=== PATIENT | male | born 1965 | race Hispanic/Latino ===

== ENCOUNTER 2020-03-28 09:43 | Inpatient (IN) | payer BC ==
--- NOTE | 2020-03-22 09:13 | RAD REPORT ---
EXAM DESCRIPTION: RAD - Chest Pa And Lat (2 Views) - 03/22/2020 9:06 am CLINICAL HISTORY: Preop Chest pain. COMPARISON: No comparisons FINDINGS: The lungs are clear. The heart is normal in size. No displaced fractures. IMPRESSION: No acute or concerning finding suspected.
[2020-03-22 09:47] LABS: Absolute Lymphocytes (CBC) 2.1 K/uL (0.7-4.9); Basophils % 0.3 % (0-1.3); Hematocrit 46.4 % (39.6-49.0); Lymphocytes % 30.2 % (15.3-44.8); MPV 7.9 fL (7.6-11.3); RBC Red Blood Cell Count 5.53 M/uL (4.33-5.43)
[2020-03-22 09:51] LABS: Protime INR 0.91
[2020-03-22 09:57] LABS: Potassium 3.9 mmol/L (3.5-5.1)
--- OUTSIDE RECORDS SUMMARY | 2020-03-28 10:04 | XMS REPORT | Continuity of Care Document ---
:1965 Author Organization [facility] t Address [address] [place] [address] Care Team Providers Name Role Phone Unavailable Unavailable Unavailable Problems This patient has no known problems. Allergies, Adverse Reactions, Alerts This patient has no known allergies or adverse reactions. Medications Ordered Filled Start Stop Current Ordering Indication Dosage Frequency Signature Comments Components Source Medication Medication Date Date Medication? Clinician (SIG) Name Name Tylenol # 3 Tylenol # 3 2019- Yes Robert one tab [facility] Procedures This patient has no known procedures. Encounters Start End Encounter Admission Attending Care Care Encounter Source Date/Time Date/Time Type Type Clinicians Facility Department ID 2020-03-26 2020-03-26 Outpatient [facility] [id number] [facility] 2020-03-20 2020-03-20 Outpatient [facility] [id number] [facility] 2020-02-08 2020-02-08 Outpatient [facility] [id number] [facility] 2020-02-06 2020-02-06 Outpatient [facility] [id number] [facility] 2020-01-20 2020-01-20 Outpatient Arelis Vidal [id number] [facility] 2020-01-10 2020-01-10 Outpatient Arelis Vidal [id number] [facility] 15[facility]13[facility]00 15[facility]13[facility]00 [facility] 2019-12-26 2019-12-26 Outpatient Arelis Vidal [id number] 14:[facility]00 14[facility]00[facility]00 [facility] Results This patient has no known results.
--- OUTSIDE RECORDS SUMMARY | 2020-03-28 10:05 | XMS REPORT ---
:1965 Author Organization [employer] Care Team Providers Name Role Phone Robert Collier Provider Role Unavailable Allergies, Adverse Reactions, Alerts Substance Reaction Event Type N.K.D.A. Info Not Available Non Drug Allergy Problems Problem Type Condition Code Onset Dates Condition Statu s Problem Primary osteoarthritis of right M17.11 Active knee Problem Primary osteoarthritis of left knee M17.12 Active Assessment Primary osteoarthritis of right M17.11 Active knee Assessment Primary osteoarthritis of left knee M17.12 Active Assessment Pain in joint of left knee M25.562 A ctive Assessment Pain in joint of right knee M25.561 Active Medications Medication Code Code Instructions Start End Status Dosage System Date Date Ciprofloxacin HCl [facility] [address]-66 Active not defined Tramadol HCl [facility] 37911511852 50 MG Orally Dec 25, Active 1 tablet Q6H PRN PAIN 2019 Omeprazole [facility] [address]-13 Active not defined Azulfidine [facility] [address]-79 Active not defined Metronidazole [facility] [address]-24 Active not defined Testosterone [facility] [address]-80 Active not Cypionate defined Suprep Bowel Prep [facility] [address]-63 Active not Kit defined Hydrocortisone [facility] [address]-34 Active not (Perianal) defined Results No Known Results Summary Purpose eClinicalWorks Submission
--- OUTSIDE RECORDS SUMMARY | 2020-03-28 10:05 | XMS REPORT ---
:1965 Author Organization [employer] Care Team Providers Name Role Phone Robert Collier Provider Role Unavailable Allergies No Known Allergies Problems Problem Type Condition Code Onset Dates Condition Statu s Problem Primary osteoarthritis of right knee M17.11 Active Problem Primary osteoarthritis of left knee M17.12 Active Medications No Known Medications Results No Known Results Summary Purpose eClinicalWorks Submission
--- OUTSIDE RECORDS SUMMARY | 2020-03-28 10:05 | XMS REPORT ---
:1965 Author Organization [facility] Address [address] [place] [address] Care Team Providers Name Role Phone Robert Collier Unavailable [phone] PROBLEMS Type Condition ICD9-CM [id number] Onset Condition SNOMED Code Notes Code Code Dates Status Problem Primary M17.11 Active [id number] osteoarthritis of right knee Problem Primary M17.12 Active [id number] osteoarthritis of left knee ALLERGIES No Known Allergies ENCOUNTERS from 1965 to 2020-02-08 Encounter Location Date Provider Diagnosis [facility] [address] Jan, [place] [address] IMMUNIZATIONS No Information SOCIAL HISTORY Tobacco Use: Social History Observation Description Date Details (start date - stop date) Never Smoker Sex Assigned At : Social History Observation Description Sex Assigned At Unknown Alcohol Screen Question Answer Notes Did you have a drink containing alcohol in Yes the past year? Points 4 Interpretation Positive How often did you have 6 or more drinks on Less than monthly (1 point) one occasion in the past year? How often did you have a drink containing Two to three times per week (3 alcohol in the past year? points) Tobacco Use/Smoking Question Answer Notes Are you a never smoker Additional Findings: Tobacco Non-User Current non-smoker REASON FOR REFERRAL No Information VITAL SIGNS No information MEDICATIONS Medication SIG (Take, Route, Start Date End Date Status Frequency, Duration) Tramadol HCl 50 MG 1 tablet Orally Q6H PRN Dec, Active PAIN Testosterone Cypionate Not-T aking Azulfidine Active Hydrocortisone (Perianal) No t-Taking Omeprazole Not-Taking Ciprofloxacin HCl Not-Taking Suprep Bowel Prep Kit Not-Ta russell Metronidazole Not-Taking Tylenol # 3 300/30mg one tab PO 6 hrs prn Jan, Feb, Active pain for 30 days PROCEDURES No Information RESULTS No Results REASON FOR VISIT MRI Auth MEDICAL (GENERAL) HISTORY Type Description Date Medical History htn Medical History gerd Surgical History right knee Surgical History appendectomy Goals Section No Information Health Concerns No Information MEDICAL EQUIPMENT No Information MENTAL STATUS No Information FUNCTIONAL STATUS No Information ASSESSMENTS No Information PLAN OF TREATMENT Medication Medication Name Sig Start Date Stop Date Tylenol # 3 300/30mg one tab PO 6 hrs prn pain for 30 days 2019Feb, Tramadol HCl 50 MG 1 tablet Orally Q6H PRN PAIN Dec, Next Appt Details Provider Name:Robert Collier, 2020-04-19 0 1:00:00 PM, [address] [facility] , [address], [place], [address], Insurance Providers Payer Name Payer Payer Insured Name Patient Coverage Covera ge End Address Phone Relationship to Start Date Ferdinand e Insured [employer] [phone] CLAYTON DONOVAN and Blue [id number] [address] [place] [phone]
--- OUTSIDE RECORDS SUMMARY | 2020-03-28 10:05 | XMS REPORT ---
:1965 Author Organization [facility] Address [address], [facility] 1 [place] [address] Care Team Providers Name Role Phone Robert Collier Unavailable [phone] PROBLEMS Type Condition ICD9-CM [id number] Onset Condition SNOMED Code Notes Code Code Dates Status Problem Primary M17.11 Active 418832706142143 osteoarthritis of right knee Problem Primary M17.12 Active [id number] osteoarthritis of left knee ALLERGIES No Known Allergies ENCOUNTERS from 1965 to 2020-03-21 Encounter Location Date Provider Diagnosis [facility] [address] Mar, Robert [facility] [address] [place] of right kne e M17.11 ; [place], [place] Pain in joint o f left [address] knee M25.562 ; Pain in joint of right knee M25.561 and Mely lesli osteoarthritis of left knee M17.12 IMMUNIZATIONS No Information SOCIAL HISTORY Tobacco Use: [...] REASON FOR REFERRAL No Information VITAL SIGNS Height 68 in Mar, Weight 210 lbs Mar, Temperature 97.5 degrees Fahrenheit Mar, BMI 31.93 kg/m2 Mar, Blood pressure systolic 123 mm Hg Mar, Blood pressure diastolic 98 mm Hg Mar, MEDICATIONS Medication SIG (Take, Route, Frequency, Start Date End Date Status Duration) Ciprofloxacin HCl Not-Taking Metronidazole Not-Taking Enalapril Maleate Active Sulfasalazine Active Testosterone Cypionate Not-T aking Suprep Bowel Prep Kit Not-Ta russell Omeprazole Active Hydrocortisone (Perianal) No t-Taking PROCEDURES No Information RESULTS No Results REASON FOR VISIT right knee pain/ discuss TKA for 03/28 MEDICAL (GENERAL) HISTORY Type Description Date Medical History htn Medical History gerd Surgical History right knee Surgical History appendectomy Goals Section No Information Health Concerns No Information MEDICAL EQUIPMENT No Information MENTAL STATUS No Information FUNCTIONAL STATUS No Information ASSESSMENTS Encounter Date Diagnosis Notes Mar, Pain in joint of right knee (ICD-10 - M2 5.561) Mar, Pain in joint of left knee (ICD-10 - M25 .562) Mar, Primary osteoarthritis of left knee (ICD -10 - M17.12) Mar, Primary osteoarthritis of right knee (IC D-10 - M17.11) PLAN OF TREATMENT Treatment Notes Assessment Notes Clinical Notes Primary osteoarthritis of right I discussed with the patient at knee length his diagnosis and treatment plan and he expressed understanding. He has failed conservative treatment including weight management, strengthening exercises, NSAIDs use, and corticosteroid injections. His pain interferes with his ADLs. I recommended right total knee arthroplasty. I discussed with the patient risks and benefits associated with the procedure at length as well as postoperative rehabilitation and he expressed understanding. He is scheduled for right TKA next week. He will followup 2 weeks postop for staple removal. Primary osteoarthritis of left knee -proceed with conservati ve treatment at this time including pain medication as needed and home exercise program-begin with surgical treatment of the right knee Next Appt Details 2 weeks postop Reason: Provider Name:Robert Collier, 2020-04-19 0 1:00:00 PM, [address], [address], [place], [address], Insurance Providers Payer Name Payer Payer Insured Name Patient Coverage Covera End Address Phone Relationship to Start Date Ferdinand e Insured [employer] [phone] CLAYTON DONOVAN and Van [id number] [address] [place] [id number]
--- OUTSIDE RECORDS SUMMARY | 2020-03-28 10:05 | XMS REPORT ---
:1965 Author Organization [employer] Care Team Providers Name Role Phone Nando Robert Provider Role Unavailable Allergies No Known Allergies Problems Problem Type Condition Code Onset Dates Condition Statu s Problem Primary osteoarthritis of right knee M17.11 Active Problem Primary osteoarthritis of left knee M17.12 Active Medications Medication Code System Code Instructions Start Date End Date Status Dosage Tylenol # 3 NDC 0 300/30mg PO 6 hrs Jan 11, Feb 10, Active o ne tab prn pain 2019 2019 Results No Known Results Summary Purpose eClinicalWorks Submission
--- OUTSIDE RECORDS SUMMARY | 2020-03-28 10:05 | XMS REPORT ---
:1965 Author Organization [facility] Address [address] [place] [address] Care Team Providers Name Role Phone Robert Collier Unavailable [phone] PROBLEMS Type Condition ICD9-CM [id number] Onset Condition SNOMED Code Notes Code Code Dates Status Problem Primary M17.11 Active [id number] osteoarthritis of right knee Problem Primary M17.12 Active 016554680344813 osteoarthritis of left knee ALLERGIES No Known Allergies ENCOUNTERS from 1965 to 2020-03-26 Encounter Location Date Provider Diagnosis [facility] [address] Mar, [place] [address] IMMUNIZATIONS No Information SOCIAL HISTORY Tobacco Use: [...] No information MEDICATIONS Medication SIG (Take, Route, Notes Start Date End Date Status Frequency, Duration) Omeprazole Not-Taking Metronidazole Not-Taking Suprep Bowel Prep Kit Not -Taking Testosterone Cypionate No t-Taking Tramadol HCl 50 MG 1 tablet Orally Q6H Dec, Active PRN PAIN Xarelto 10 MG 1 tablet Orally Once Mar, Active a day for 11 days Ciprofloxacin HCl Not-Chintan ing Enalapril Maleate Active Hydrocortisone (Perianal) Not-Taking Azulfidine Active Sulfasalazine Active PROCEDURES No Information RESULTS No Results REASON FOR VISIT RX FOR TKA MEDICAL (GENERAL) HISTORY Type Description Date Medical History htn Medical History gerd Surgical History right knee Surgical History appendectomy Goals Section No Information Health Concerns No Information MEDICAL EQUIPMENT No Information MENTAL STATUS No Information FUNCTIONAL STATUS No Information ASSESSMENTS No Information PLAN OF TREATMENT Medication Medication Name Sig Start Date Stop Date Xarelto 10 MG 1 tablet Orally Once a day for 11 days Mar, 2 020 Next Appt Details Provider Name:Robert Collier, 2020-04-12 1 0:00:00 AM, [address], [address], [place], [address], Insurance Providers Payer Name Payer Payer Insured Name Patient Coverage Covera ge End Address Phone Relationship to Start Date Ferdinand e Insured [employer] [phone] CLAYTON DONOVAN and Blue [id number] [address] [place] [phone]
--- OUTSIDE RECORDS SUMMARY | 2020-03-28 10:05 | XMS REPORT ---
:1965 Author Organization [facility] Address [address] , [facility] 1 [place] [address] Care Team Providers Name Role Phone Robert Collier Unavailable [phone] PROBLEMS Type Condition ICD9-CM [id number] Onset Condition SNOMED Code Notes Code Code Dates Status Problem Primary M17.11 Active [id number] osteoarthritis of right knee Problem Primary M17.12 Active 110771952207916 osteoarthritis of left knee ALLERGIES No Known Allergies ENCOUNTERS from 1965 to 2020-02-06 Encounter Location Date Provider Diagnosis [facility] [address] Jan, Robert [facility] [address] [place] of right kne e M17.11 [place] [address] IMMUNIZATIONS No Information SOCIAL HISTORY Tobacco Use: [...] RESULTS No Results REASON FOR VISIT MRI MEDICAL (GENERAL) HISTORY Type Description Date Medical History htn Medical History gerd Surgical History right knee Surgical History appendectomy Goals Section No Information Health Concerns No Information MEDICAL EQUIPMENT No Information MENTAL STATUS No Information FUNCTIONAL STATUS No Information ASSESSMENTS Encounter Date Diagnosis Notes Jan, Primary osteoarthritis of right knee (IC D-10 - M17.11) PLAN OF TREATMENT Medication Medication Name Sig Start Date Stop Date Tylenol # 3 300/30mg one tab PO 6 hrs prn pain for 30 days 2019Feb, Tramadol HCl 50 MG 1 tablet Orally Q6H PRN PAIN Dec, Treatment Notes Test Name Order Date MRI Knee Right Wo Cont 2020-02-06 Next Appt Details Provider Name:Robert Collier 2020-04-19 0 1:00:00 PM, [address] [facility] [address], [address], [place], [address], Insurance Providers Payer Name Payer Payer Insured Name Patient Coverage Covera ge End Address Phone Relationship to Start Date Ferdinand e Insured [employer] [phone] CLAYTON DONOVAN and Blue [id number] [address] [place] [phone]
[2020-03-28] MEDS ORDERED: Ringers Lactate 1,000 ML IV ONE ×2 (10:21→14:56)
[2020-03-28] MEDS ORDERED: BUPIVACAINE 0.25% PF 10 ML VIAL ONE (10:48)
[2020-03-28] MEDS ORDERED: ROCURONIUM 50 MG/5 ML VIAL IV ONE (10:48)
[2020-03-28] MEDS ORDERED: NS 0.9% VIAL 10 ML ONE ×2 (10:49→12:48)
[2020-03-28] MEDS ORDERED: propofoL 200 MG/20 ML VIAL IV ONE (10:49)
[2020-03-28] MEDS ORDERED: FENTANYL CITR 100 MCG/2 ML ONE (10:49)
[2020-03-28] MEDS ORDERED: MIDAZOLAM HCL 2 MG/2 ML INJ ONE (10:49)
[2020-03-28] MEDS ORDERED: dexAMETHasone 10 MG/ML VIAL ONE ×2 (10:49→10:59)
[2020-03-28] MEDS ORDERED: LIDOCAINE 2% MPF 5 ML VIAL ONE (10:49)
[2020-03-28] MEDS ORDERED: CEFAZOLIN/SWI 2gm 2 GM/20 ML SYR ONE (10:55)
[2020-03-28] MEDS ORDERED: ONDANSETRON 4 MG/2 ML VIAL ONE (10:59)
[2020-03-28] MEDS ORDERED: KETAMINE HCL 500 MG/5 ML VIAL ONE (10:59)
[2020-03-28] MEDS ORDERED: KETOROLAC 30 MG/ML INJ ONE (10:59)
[2020-03-28] MEDS ORDERED: TRANEXAMIC ACID 1,000 MG in NA CHLORIDE 0.9% 50 ML IV ONE (11:00)
[2020-03-28] MEDS ORDERED: HYDROMORPHONE HCL 1 MG/ML INJ ONE (12:24)
[2020-03-28] MEDS: BUPIVACA 0.5%/EPI 0.0005%/PF 30 ML VIAL ONE ×2 (13:51→14:15)
[2020-03-28] MEDS ORDERED: DOCUSATE NA 100 MG CAP PO PRN (15:11)
[2020-03-28] MEDS ORDERED: ONDANSETRON 4 MG/2 ML VIAL IV PRN (15:11)
--- NOTE | 2020-03-28 15:11 | P.BOP ---
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
[2020-03-28] MEDS ORDERED: TRAMADOL HCL 50 MG TAB PO PRN (15:14)
[2020-03-28] MEDS: HYDROMORPHONE HCL 1 MG/ML INJ ONE ×2 (15:27→15:44)
[2020-03-28 15:53] LABS: Hematocrit 43.8 % (39.6-49.0)
[2020-03-28] MEDS ORDERED: MORPHINE 2 MG/ML SYR IV PRN (16:00)
--- NOTE | 2020-03-28 17:09 | RAD REPORT ---
EXAM DESCRIPTION: RAD - Knee Right 2 View - 03/28/2020 3:48 pm CLINICAL HISTORY: Right knee surgery FINDINGS: Right knee arthroplasty has been performed. Prosthesis is in good alignment. No fracture o r dislocation
[2020-03-28] MEDS: CEFAZOLIN/SWI 2gm 2 GM/20 ML SYR IVP SCH (17:57)
[2020-03-28 18:03] VITALS: BMI 29.7
[2020-03-28] MEDS: SULFASALAZINE 500 MG E.C. TAB PO SCH (20:35)
[2020-03-28] MEDS: HYDROCODONE/APAP 7.5/325 MG TAB PO PRN (20:40)
[2020-03-28] MEDS ORDERED: SULFASALAZINE 500 MG PO SCH (21:00)
--- NOTE | 2020-03-28 21:08 | P.OP ---
Preoperative diagnosis: right knee osteoarthritis Postoperative diagnosis: same Primary procedure: right total knee arthroplasty Anesthesia: general LMA Estimated blood loss: 20 cc Specimen: right knee bone remnants Findings: see dictation Operative Technique: Indication For Procedure: Harry is an 54 year-old male presenting to my clinic with signs, symptoms and x-ray findings consistent with a severe right knee osteoarthritis. I discussed with the patient at length risks and benefits associated with operative and nonoperative treatment. He had failed conservative treatment measures and had significant difficulties with ADLs secondary to his pain. We discussed operative treatment and elected to proceed withtotal knee arthroplasty. He expressed understanding and elected to proceed with operative treatment. Description Of Procedure: After informed consent was obtained, the patient was identified in the preoperative holding area. The right lower extremity was marked. The patient was then taken to the PACU where he underwent a right lower extremity adductor canal block performed by Anesthesia. He was then taken to the operating room, transferred to the operating table in supine fashion, and placed under general anesthesia. His right lower extremity was then prepped and draped in usual sterile fashion. A time-out was initiated. The correct patient and procedure were confirmed and identified. The patient did receive his preoperative prophylactic antibiotics. The right lower extremity was then exsanguinated and tourniquet was inflated to 300 mmHg. Approximately 15 cm longitudinal incision was made centered over the anterior aspect of the right knee. Dissection was then taken to the extensor mechanism and a medial parapatellar arthrotomy was performed. The patella was everted and dislocated laterally and the knee was flexed in the fat pad. Medial lateral meniscus and ACL were all excised exposing the distal femur. Excess hypertrophic synovium was also excised within the suprapatellar pouch. The patient had a CT of his right knee preoperatively for surgical planning and creation of cutting blocks. The cutting block was then placed over the distal femur and pins were then placed. The distal femoral cutting block was then placed over the pins. Knee joint was then used to ensure proper depth cut and the distal femur was then cut. The chamfer cutting guide was then placed over the distal end of the femur. Anterior, posterior cuts as well as anterior and posterior chamfer cuts were then made again confirming proper depth of the cut using an Sunil wing. Excess bone remnants were then sent to pathology for further evaluation. Next, attention was taken to the proximal tibia. A tibial jig and tibial cutting bloc k was then placed on proximal aspect of the right tibia and locked into position. Pins were then placed and alignment guide was then used to confirm proper alignment of the cut and then coronal and sagittal planes. Once this was confirmed, the cutting jig was placed over the pins and the proximal tibia was cut. Sizing trays were then selected and size 10 mm spacer was used and there was good overall balance in flexion and extension. Next, the trial implants were then placed using the size 9 standard CR femur and a size G tibia with a 10 mm poly. There was overall good range of motion and good stability Trial implants were then removed. The wound was then irrigated thoroughly with normal saline and the knee was then injected with 30 cc of 0.5% Marcaine with epinephrine both in the posterior capsule and mediallateral gutters as well as quadriceps tendon and periosteum. The tibia was then punched. The femur was drilled. The cement was then prepared on the back table. Cement was then placed first on the tibial surface followed by size G tibia. Excess cement was removed with [place] elevators. Size 9 standard CR femur was then placed on the distal femur after cement was placed on the distal femur. Excess cement was then removed and a size 10 mm trial poly was then placed. The knee was held in extension as the cement hardened. Undersurface of the patella was prepared d ebriding osteophytes using rongeurs as well as osteophytes had been debrided off the proximal tibia with rongeurs and osteotomes to aid with the medial tightness. Cement was placed on the undersurface of the patella after it was cut and a size 35 patella was placed. Once the cement was hardened, the knee was ranged, there was good overall stability both in flexion, extension and as well as stability with varus and valgus stresses. Trial poly was then removed and a size 10 mm CR poly was then placed and locked into position. The knee was then ranged again. There was good overall range of motion both for flexion and extension with good stability. The wound was then irrigated again thoroughly with normal saline using pulse lavage. Tourniquet was let down. Hemostasis was achieved using Bovie electrocautery. Extensor mechanism was then approximated using a #1 Vicryl bothin interrupted and running fashion. The fascia was then approximated using 0 Vicryl. Subcutaneous tissue was approximated with a 2-0 Vicryl. Skin was approximated using carolyne. Sterile dressings were applied. The patient was awakened and transferred back in stable condition Complications: None Implants: Biomet Wil Persona Size 9 Femur, G tibia, 35 patella, 10 mm CR poly Fluids & blood products: per anesthesia record Transferred to: Recovery Room Condition: Good
[2020-03-29] MEDS: CEFAZOLIN/SWI 2gm 2 GM/20 ML SYR IVP SCH ×2 (01:01→09:28)
[2020-03-29] MEDS: HYDROCODONE/APAP 7.5/325 MG TAB PO PRN (04:47)
[2020-03-29] MEDS: ENOXAPARIN 30 MG/0.3 ML SQ SCH ×3 (04:48→09:00)
[2020-03-29 04:57] LABS: Absolute Lymphocytes (CBC) 1.6 K/uL (0.7-4.9); Basophils % 0.1 % (0-1.3); Hematocrit 39.9 % (39.6-49.0); Lymphocytes % 9.1 % (15.3-44.8); MPV 8.2 fL (7.6-11.3); RBC Red Blood Cell Count 4.76 M/uL (4.33-5.43)
[2020-03-29 05:09] LABS: Potassium 4.1 mmol/L (3.5-5.1)
[2020-03-29] MEDS ORDERED: PANTOPRAZOLE 40MG TABLET PO SCH (07:30)
[2020-03-29] MEDS: SULFASALAZINE 500 MG E.C. TAB PO SCH (08:19)
[2020-03-29] MEDS ORDERED: CELECOXIB 100 MG CAPSULE PO SCH (09:00)
[2020-03-29] MEDS ORDERED: HOME MED 1 EA UNK (Omeprazole [Prilosec] 40 MG) PO SCH (09:00)
[2020-03-29] MEDS ORDERED: ENALAPRIL 10 MG TAB PO SCH (09:00)
[2020-03-29 09:02] LABS: Blood Morphology Comment NOT SEEN (NOT SEEN); Platelet Estimate ADEQ
[2020-03-29 11:05] VITALS: O2SAT 99
--- NOTE | 2020-03-29 13:14 | P.DS ---
Admission Date: 03/28/20 Discharge Date: 03/29/20 Disposition: DC HOME/HOME HEALTH CARE Discharge Condition: GOOD Reason for Admission: s/p R TKA, HTN Consultations: none Procedures: right total knee arthroplasty 03/29/2020 Brief History of Present Illness: Harry is 54 yo male admitted to the floor after TKA on 03/28/20 Hospital Course: Harry underwent R TKA on 03/28/2020 without complication and was admitted to the floor in stable condition. Physical therapy was consulted and he ambulated on 03/29 well and his vital signs remained stable. He was discharged on 03/29/20 in stable condition with Xarelto and [place] home medications. Vital Signs/Physical Exam: Temp Pulse Resp BP Pulse Ox 97.7 F 69 18 131/75 96 03/29/20 08:00 03/29/20 09:28 03/29/20 11:35 03/29/20 09:28 03/29/20 11:35 Laboratory Data at Discharge: WBC 17.2 K/uL (4.3-10.9) H D 03/29/20 04:09 Hgb 13.2 g/dL (13.6-17.9) L 03/29/20 04:09 Hct 39.9 % (39.6-49.0) 03/29/20 04:09 Plt Count 238 K/uL (152-406) 03/29/20 04:09 PT 10.8 SECONDS (9.5-12.5) 03/22/20 09:28 INR 0.91 03/22/20 09:28 APTT 24.6 SECONDS (24.3-36.9) 03/22/20 09:28 Sodium 136 mmol/L (136-145) 03/29/20 04:09 Potassium 4.1 mmol/L (3.5-5.1) 03/29/20 04:09 BUN 23 mg/dL (7-18) H 03/29/20 04:09 Creatinine 1.00 mg/dL (0.55-1.3) 03/29/20 04:09 Glucose 136 mg/dL (74-106) H 03/29/20 04:09 Home Medications: Enalapril [Vasotec*] 10 mg PO DAILY 03/22/20 Omeprazole [Prilosec] 40 mg PO DAILY 03/22/20 sulfaSALAzine [Sulfasalazine] 500 mg PO TID 03/22/20 Hydrocodone 7.5/APAP 325 [[place] 7.5/325 mg*] 1 tab PO Q4H PRN tab 03/29/20 Patient Discharge Instructions: keep dressing clean and dry; begin Xarelto on 03/30/2020 in the morning and take once a day; f/u with Dr. Collier in 2 weeks for staple removal Diet: Regular Activity: Weight bearing as tolerated Followup: Robert Collier MD [ACTIVE - CAN ADMIT] - 1-2 Weeks
[2020-03-29 13:29] VITALS: BP 138/76; TEMP 98.2
== END 2020-03-29 14:00 | disposition home health service (06) | DRG 470 ==
LOC: OR 09:43 → 2ND 15:45
PROVIDERS: ADMIT Orthopaedic Surgery Sports Medicine; ATTEND Orthopaedic Surgery Sports Medicine
PROC: 0SRC0J9 Replacement of Right Knee Joint with Synthetic Substitute, Cemented, Open Approach (ICD-10-PCS; principal; 2020-03-28 12:00)
DX: M17.11 Unilateral primary osteoarthritis, right knee (principal); K21.9 Gastro-esophageal reflux disease without esophagitis; I10 Essential (primary) hypertension; Z79.899 Other long term (current) drug therapy; Z90.49 Acquired absence of other specified parts of digestive tract; Z79.891 Long term (current) use of opiate analgesic; Z20.828 Contact with and (suspected) exposure to other viral communicable diseases
CPT/HCPCS: 36415; 71046; 80048; 85014; 85018; 85025; 85610; 85730; 88304; 88305; 88311; 93005; 94010; 97116; 97139; 97161; 97530; J0690; J1100; J1170; J1650; J2250; J2405; J2704; J3010; J7120

== ENCOUNTER 2020-09-12 08:28 | Inpatient (IN) | payer BC ==
[2020-09-06 10:50] LABS: Absolute Lymphocytes (CBC) 2.2 K/uL (0.7-4.9); Basophils % 0.4 % (0-1.3); Hematocrit 42.6 % (39.6-49.0); Lymphocytes % 24.2 % (15.3-44.8); MPV 7.5 fL (7.6-11.3); RBC Red Blood Cell Count 4.99 M/uL (4.33-5.43)
[2020-09-06 11:02] LABS: Protime INR 0.97
[2020-09-06 11:14] LABS: Potassium 4.1 mmol/L (3.5-5.1)
[2020-09-12] MEDS ORDERED: BUPIVACAINE 0.25% PF 30 ML VIAL ONE (08:53)
[2020-09-12] MEDS ORDERED: HYDROMORPHONE HCL 1 MG/ML INJ ONE (08:53)
[2020-09-12] MEDS ORDERED: propofoL 200 MG/20 ML VIAL IV ONE (08:56)
[2020-09-12] MEDS ORDERED: NS 0.9% VIAL 20 ML ONE (08:56)
[2020-09-12] MEDS ORDERED: dexAMETHasone 10 MG/ML VIAL ONE (08:56)
[2020-09-12] MEDS ORDERED: LIDOCAINE 1% MPF 30 ML VIAL ONE (08:56)
[2020-09-12] MEDS ORDERED: MIDAZOLAM HCL 2 MG/2 ML INJ ONE (08:56)
[2020-09-12] MEDS ORDERED: LIDOCAINE 2% MPF 5 ML VIAL ONE (08:56)
[2020-09-12] MEDS ORDERED: FENTANYL CITR 100 MCG/2 ML ONE (08:56)
[2020-09-12] MEDS ORDERED: Ringers Lactate 1,000 ML IV ONE ×2 (08:59→13:11)
[2020-09-12] MEDS ORDERED: CEFAZOLIN/SWI 1gm 2 GM/20 ML SYR ONE (09:00)
[2020-09-12] MEDS ORDERED: LABETALOL 20 MG/4ML SYRINGE IV ONE (09:12)
[2020-09-12] MEDS ORDERED: ACETAMINOPHEN 500 MG TAB ONE (09:24)
[2020-09-12] MEDS ORDERED: CELECOXIB 100 MG CAPSULE ONE (09:24)
[2020-09-12] MEDS ORDERED: TRANEXAMIC ACID 1,000 MG in NA CHLORIDE 0.9% 50 ML IV SCH (09:30)
[2020-09-12] MEDS ORDERED: KETOROLAC 30 MG/ML INJ ONE (11:04)
[2020-09-12] MEDS ORDERED: ONDANSETRON 4 MG/2 ML VIAL ONE (11:08)
[2020-09-12] MEDS ORDERED: GLYCOPYRROLATE 0.2 MG/ML SYR ONE (12:28)
[2020-09-12] MEDS ORDERED: KETAMINE HCL 500 MG/5 ML VIAL ONE (12:37)
[2020-09-12] MEDS ORDERED: ESMOLOL HCL 10 ML IV ONE (12:41)
[2020-09-12] MEDS ORDERED: methocarbamoL 750 MG TAB PO PRN (13:52)
--- NOTE | 2020-09-12 13:52 | P.BOP ---
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
[2020-09-12] MEDS ORDERED: ONDANSETRON 4 MG/2 ML VIAL IV PRN (13:53)
[2020-09-12] MEDS ORDERED: TRAMADOL HCL 50 MG TAB PO PRN (13:56)
--- NOTE | 2020-09-12 14:47 | RAD REPORT ---
EXAM DESCRIPTION: RAD - Knee Left 2 View - 09/12/2020 2:30 pm CLINICAL HISTORY: Post Op COMPARISON: Knee Left 2 View dated 07/02/2020 FINDINGS: A left total knee prosthesis has been placed. No fracture or unexpected finding of the eric mary bone. Implant is well positioned. Normal postoperative air is seen in the joint space. Skin stapl es are seen anteriorly. No foreign body or retained surgical device seen. IMPRESSION: Left total knee prosthesis has been placed. No unexpected finding.
[2020-09-12 15:36] LABS: Hematocrit 41.6 % (39.6-49.0)
[2020-09-12] MEDS: MESALAMINE 0.375 GM PO SCH ×2 (17:00→21:00)
--- OUTSIDE RECORDS SUMMARY | 2020-09-12 17:02 | XMS REPORT | Continuity of Care Document ---
:[address] [facility] t Address [address] [place] [address] Care Team Providers Name Role Phone Yokasta Layton RN Attending Clinician Unavailable Joel Quach DO Attending Clinician Candi Pereira MD Attending Clinician Problems This patient has no known problems. Allergies, Adverse Reactions, Alerts This patient has no known allergies or adverse reactions. Medications Ordered Filled Start Stop Current Ordering Indication Dosage Frequency Signature Comments Components Source Medication Medication Date Date Medication? Clinician (SIG) Name Name Tylenol # 3 Tylenol # 3 2020-0 2020- No [facility] Procedures This patient has no known procedures. Encounters Start End Encounter Admission Attending Care Care Encounter Source Date/Time Date/Time Type Type Clinicians Facility Department ID 2020-09-07 2020-09-07 Outpatient [facility] [id number] [facility] 2020-09-06 2020-09-06 Outpatient [facility] [id number] 2020-08-07 2020-08-07 Out[facility] [id number] [facility] 2020-08-07 2020-08-07 [facility] [id number] [facility] 2020-08-03 2020-08-03 [facility] [id number] [facility] 2020-08-01 2020-08-01 Patient [facility] [id number] 00:00:00 00:00:00 Secure Msg Yokasta Fontana MULTISPEC [id number] [facility] [id number] [facility] [id number] [facility] 2020-07-21 2020-07-21 Patient Main [facility] [id number] 00:00:00 00:00:00 Outreach [facility] [id number] [facility] [id number] PAV[place]I [id number] 2020-07-18 2020-07-18 Outpatient [facility] [id number] [facility] 2020-07-18 2020-07-18 [facility] [id number] [facility] 2020-07-17 2020-07-17 Telephone Randall [facility] [id number] 00:00:00 00:00:00 Haresh Christopher MULTISPEC [id number] [facility] [id number] [place] [id number] [facility] 2020-07-09 2020-07-09 Office Randall [facility] [id number] 13:08:47 13:48:40 Visit Haresh Christopher MULTISPEC [id number] IAL[facility] [id number] [place] [id number] [facility] 2020-07-05 2020-07-05 [facility] [id number] [facility] 2020-06-18 2020-06-18 [facility] [id number] [facility] 2020-05-14 2020-05-14 [facility] [id number] [facility] 2020-04-16 2020-04-16 [facility] [id number] [facility] 2020-04-16 2020-04-16 [facility] [id number] [facility] 2020-04-16 2020-04-16 [facility] [id number] [facility] 2020-04-12 2020-04-12 Out[facility] [id number] [facility] 2020-04-02 2020-04-02 Out[facility] [id number] [facility] 2020-03-26 2020-03-26 [facility] [id number] [facility] 2020-03-20 2020-03-20 [facility] [id number] [facility] 2020-02-08 2020-02-08 [facility] [id number] [facility] 2020-02-06 2020-02-06 [facility] [id number] [facility] 2020-01-20 2020-01-20 Outpatient Arelis Vidal [id number] [facility] 11:16[facility]00 11:16[facility]00 [facility] 2020-01-10 2020-01-10 Outpatient Arelis Vidal [id number] 15:13:00 15:13:00 [facility] 2019-12-26 2019-12-26 Outpatient Arelis Vidal [id number] [facility] 14:00[facility]00 14:00[facility]00 [facility] Results This patient has no known results.
[2020-09-12] MEDS ORDERED: MORPHINE 2 MG/ML SYR IV PRN (17:08)
[2020-09-12 17:45] VITALS: BMI 30.1
[2020-09-12] MEDS: CEFAZOLIN/SWI 2gm 2 GM/20 ML SYR IVP SCH (17:58)
--- NOTE | 2020-09-12 21:03 | P.OP ---
Preoperative diagnosis: left knee osteoarthritis Postoperative diagnosis: same Primary procedure: left total knee arthroplasty Anesthesia: general LMA Estimated blood loss: 30 cc Specimen: left knee bone remnants Findings: see dictation Operative Technique: Indication For Procedure: Harry is an 55 year-old male presenting to my clinic with signs, symptoms and x-ray findings consistent with a severe left knee osteoarthritis. I discussed with the patient at length risks and benefits associated with operative and nonoperative treatment. He had failed conservative treatment measures and had significant difficulties with ADLs secondary to his pain. We discussed operative treatment and elected to proceed with left total knee arthroplasty. He expressed understanding and elected to proceed with operative treatment. Description Of Procedure: After informed consent was obtained, the patient was identified in the preoperative holding area. The left lower extremity was marked. The patient was then taken to the PACU where he underwent a right lower extremity adductor canal block performed by Anesthesia. He was then taken to the operating room, transferred to the operating table in supine fashion, and placed under general anesthesia. His leftt lower extremity was then prepped and draped in usual sterile fashion. A time-out was initiated. The correct patient and procedure were confirmed and identified. The patient did receive his preoperative prophylactic antibiotics. The left lower extremity was then exsanguinated and tourniquet was inflated to 300 mmHg. Approximately 15 cm longitudinal incision was made centered over the anterior aspect of the left knee. Dissection was then taken to the extensor mechanism and a medial parapatellar arthrotomy was performed. The patella was everted and dislocated laterally and the knee was flexed in the fat pad. Medial lateral meniscus and ACL were all excised exposing the distal femur. Excess hypertrophic synovium was also excised within the suprapatellar pouch. The patient had a MRI of his left knee preoperatively for surgical planning and creation of cutting blocks. The cutting block was then placed over the distal femur and pins were then placed. The distal femoral cutting block was then placed over the pins. Knee joint was then used to ensure proper depth cut and the distal femur was then cut. The chamfer cutting guide was then placed over the distal end of the femur. Anterior, posterior cuts as well as anterior and posterior chamfer cuts were then made again confirming proper depth of the cut using an Sunil wing. Excess bone remnants were then sent to pathology for further evaluation. Next, attention was taken to the proximal tibia. A tibial jig and tibial cutting block was then placed on proximal aspect of the left tibia and locked into position. Pins were then placed and alignment guide was then used to confirm proper alignment of the cut and then coronal and sagittal planes. Once this was confirmed, the cutting jig was placed over the pins and the proximal tibia was cut. Sizing trays were then selected and size 10 mm spacer was used and there was good overall balance in flexion and extension. Next, the trial implants were then placed using the size 9 standard CR femur and a size G tibia with a 10 mm poly. There was overall good range of motion and good stability Trial implants were then removed. The wound was then irrigated thoroughly with normal saline and the knee was then injected with 30 cc of 0.25% Marcaine both in the posterior capsule and mediallateral gutters as well as quadriceps tendon and periosteum. The tibia was then punched. The femur was drilled. The cement was then prepared on the back table. Cement was then placed first on the tibial surface followed by size G tibia. Excess cement was removed with Hyndman elevators. Size 9 standard CR femur was then placed on the distal femur after cement was placed on the distal femur. Excess cement was then removed and a size 10 mm trial poly was then placed. The knee was held in extension as the cement hardened. Undersurface of the patella was prepared debriding osteophytes using rongeurs as well as osteophytes had been debrided off the proximal tibia with rongeurs and osteotomes to aid with the medial tightness. Cement was placed on the undersurface of the patella after it was cut and a size 35 patella was placed. Once the cement was hardened, the knee was ranged, there was good overall stability both in flexion, extension and as well as stability with varus and valgus stresses. Trial poly was then removed and a size 10 mm CR poly was then placed and locked into position. The knee was then ranged again. There was good overall range of motion both for flexion and extension with good stability. The wound was then irrigated again thoroughly with normal saline using pulse lavage. Tourniquet was let down. Hemostasis was achieved using Bovie electrocautery. Extensor mechanism was then approximated using a #1 Vicryl bothin interrupted and running fashion. The fascia was then approximated using 0 Vicryl. Subcutaneous tissue was approximated with a 2-0 Vicryl. Skin was approximated using carolyne. Sterile dressings were applied. The patient was awakened and transferred back in stable condition Complications: None Implants: Biomet Wil Persona 9 STD CR femur, G tibia, 35 patella, 10 mm poly Fluids & blood products: per anesthesia record; TT: 79 mins @ 300 mmHg Transferred to: Recovery Room Condition: Good
[2020-09-13] MEDS: CEFAZOLIN/SWI 2gm 2 GM/20 ML SYR IVP SCH ×2 (01:20→09:44)
[2020-09-13] MEDS: HYDROCODONE/APAP 7.5/325 MG TAB PO PRN ×2 (01:20→13:01)
[2020-09-13] MEDS: ENOXAPARIN 30 MG/0.3 ML SQ SCH ×2 (05:23→09:00)
[2020-09-13 06:02] LABS: Absolute Lymphocytes (CBC) 1.5 K/uL (0.7-4.9); Hematocrit 37.4 % (39.6-49.0); Lymphocytes % 8.7 % (15.3-44.8); MPV 8.2 fL (7.6-11.3); RBC Red Blood Cell Count 4.41 M/uL (4.33-5.43)
[2020-09-13 06:21] LABS: Potassium 4.2 mmol/L (3.5-5.1)
[2020-09-13] MEDS ORDERED: PANTOPRAZOLE 40MG TABLET PO SCH (07:30)
--- NOTE | 2020-09-13 07:49 | P.PN ---
Subjective Date of Service: 09/13/20 Chief Complaint: s/p left total knee arthroplasty Subjective: Working w/ PT pain controlled Physical Examination - Vital Signs Temperature: 97.4 F Blood Pressure: 106/59 Pulse: 62 Respirations: 17 Pulse Ox (%): 92 - Physical Exam General: Alert, In no apparent distress Musculoskeletal: Other (LLE: dressing c/d/i; +EHL/FHL/GSC/TA; sensation grossly intact distally) - Studies Laboratory Data (last 24 hrs) 09/13/20 05:23: Sodium 139, Potassium 4.2, BUN 22 H, Creatinine 1.00, Glucose 133 H 09/13/20 05:23: WBC 17.20 H D, Hgb 12.3 L, Hct 37.4 L, Plt Count 295 09/12/20 15:11: Hgb 13.5 L, Hct 41.6 Assessment And Plan - Plan Harry is a 55 yo male s/p right total knee arthroplasty POD#1 -PT to mobilize -lovenox for DVT prophylaxis -possible d/c home today if stable with PT
[2020-09-13 08:39] LABS: Blood Morphology Comment NOT SEEN (NOT SEEN); Platelet Estimate ADEQ; White Blood Cell Scan OK (OK)
[2020-09-13] MEDS ORDERED: ENALAPRIL 10 MG TAB PO SCH (09:00)
[2020-09-13] MEDS ORDERED: CELECOXIB 100 MG CAPSULE PO SCH (09:00)
[2020-09-13] MEDS: MESALAMINE 0.375 GM PO SCH ×2 (09:00→13:00)
[2020-09-13] MEDS ORDERED: HOME MED 1 EA UNK (Omeprazole [Prilosec] 40 MG Capsule.Dr) PO SCH (09:00)
[2020-09-13 10:22] VITALS: O2SAT 94
--- NOTE | 2020-09-13 13:04 | P.DS ---
Admission Date: 09/12/20 Discharge Date: 09/13/20 Disposition: DC HOME/HOME HEALTH CARE Discharge Condition: GOOD Reason for Admission: s/p left total knee arthroplasty Procedures: left total knee arthroplasty 09/12/20 Brief History of Present Illness: Harry is a 55-year-old male who was admitted postoperatively for left total knee arthroplasty. Hospital Course: Harry was admitted to the floor in stable condition. Physical therapy was consulted to aid with mobilization. He mobilized with physical therapy in the morning of September 13, 2020 with and was deemed stable for discharge. His pain was controlled and his vitals remained stable While in the hospital he was on Lovenox for DVT prophylaxis. He will be discharged with Xarelto for DVT prophylaxis. Vital Signs/Physical Exam: Temp Pulse Resp BP Pulse Ox 98.2 F 62 18 114/66 94 09/13/20 08:00 09/13/20 09:46 09/13/20 08:00 09/13/20 09:46 09/13/20 08:00 Laboratory Data at Discharge: WBC 17.20 K/uL (4.3-10.9) H D 09/13/20 05:23 Hgb 12.3 g/dL (13.6-17.9) L 09/13/20 05:23 Hct 37.4 % (39.6-49.0) L 09/13/20 05:23 Plt Count 295 K/uL (152-406) 09/13/20 05:23 PT 11.1 SECONDS (9.5-12.5) 09/06/20 10:42 INR 0.97 09/06/20 10:42 APTT 30.7 SECONDS (24.3-36.9) 09/06/20 10:42 Sodium 139 mmol/L (136-145) 09/13/20 05:23 Potassium 4.2 mmol/L (3.5-5.1) 09/13/20 05:23 BUN 22 mg/dL (7-18) H 09/13/20 05:23 Creatinine 1.00 mg/dL (0.55-1.3) 09/13/20 05:23 Glucose 133 mg/dL (74-106) H 09/13/20 05:23 Home Medications: Enalapril [Vasotec*] 10 mg PO DAILY 03/22/20 Omeprazole [Prilosec] 40 mg PO DAILY 03/22/20 L.acidoph,Paracasei, B.lactis [Probiotic] 1 each PO DAILY 09/06/20 Mesalamine [Mesalamine ER] 0.375 gm PO QID 09/06/20 methocarbamoL [Methocarbamol] 750 mg PO BIDP PRN 09/06/20 Hydrocodone 7.5/APAP 325 [[place] 7.5/325 mg*] 1 tab PO Q4H PRN tab 09/13/20 Physician Discharge Instructions: keep dressing clean and dry; begin xarelto tomorrow (09/14/20) in AM; use bilater al CHRISTIANA hose for 2 weeks postop Diet: Regular Activity: Weight bearing as tolerated Followup: Robert Collier MD [ACTIVE - CAN ADMIT] -
[2020-09-13 15:17] VITALS: BP 128/88; TEMP 98.6
== END 2020-09-13 15:53 | disposition home health service (06) | DRG 470 ==
LOC: PRE 08:28 → 2ND 16:59
PROVIDERS: ADMIT Orthopaedic Surgery Sports Medicine; ATTEND Orthopaedic Surgery Sports Medicine
PROC: 0SRD0J9 Replacement of Left Knee Joint with Synthetic Substitute, Cemented, Open Approach (ICD-10-PCS; principal; 2020-09-12 10:30)
DX: M17.12 Unilateral primary osteoarthritis, left knee (principal); K21.9 Gastro-esophageal reflux disease without esophagitis; I10 Essential (primary) hypertension; Z79.01 Long term (current) use of anticoagulants; Z79.899 Other long term (current) drug therapy; Z90.49 Acquired absence of other specified parts of digestive tract; Z96.651 Presence of right artificial knee joint; Z20.822 Contact with and (suspected) exposure to COVID-19
CPT/HCPCS: 36415; 80048; 85014; 85018; 85025; 85610; 85730; 88304; 88311; 94010; 97110; 97116; 97139; 97161; J0690; J1100; J1170; J1650; J2250; J2405; J2704; J3010; J7120; U0002